=== PATIENT | male | born 1985 | race Caucasian/White ===

== ENCOUNTER 2023-10-09 01:42 | Emergency (ER) | payer SELFPAY ==
[~2023-10-09] VITALS: Ht 167.6 cm; Wt 95.3 kg
[2023-10-09 02:18] LABS: STREPTOCOCCUS GRP A ANTIGEN POSITIVE (NEGATIVE)
[2023-10-09] MEDS ORDERED: AMOX TR-K CLV1 EAC2 PO (02:21)
[2023-10-09 02:32] LABS: INFLUENZAE A&B ANTIGEN (RAPID) NEGATIVE (NEGATIVE); RESPIRATORY SYNC. VIRUS NEGATIVE (NEGATIVE)
[2023-10-09 02:40] VITALS: PULSE 78; RESP 19; TEMP 98.8; O2SAT 100
== END 2023-10-09 02:42 | disposition home or self-care (01) ==
LOC: ER 01:48
DX: R50.9 Fever, unspecified (principal); J02.0 Streptococcal pharyngitis; R05.9 Cough, unspecified; Z11.52 Encounter for screening for COVID-19
CPT/HCPCS: 83518; 87400; 87420; 99283; U0002

== ENCOUNTER 2024-06-11 12:53 | Emergency (ER) | payer BC ==
[~2024-06-11] VITALS: Ht 167.6 cm; Wt 74.8 kg
[~2024-06-11 12:53] MED LIST: AMOX TR-K CLV1 EAC2 PO
[2024-06-11 13:07] VITALS: PULSE 83; RESP 16; TEMP 98.1
[2024-06-11] MEDS ORDERED: EPIFOAM FOAM10 GM RC (13:40)
[2024-06-11 13:55] VITALS: BP 115/77; PULSE 83; RESP 16; TEMP 98.1; O2SAT 100
== END 2024-06-11 14:14 | disposition home or self-care (01) ==
LOC: ER 13:10
DX: K62.89 Other specified diseases of anus and rectum (principal); K64.5 Perianal venous thrombosis
CPT/HCPCS: 99283

== ENCOUNTER 2024-07-23 23:09 | Emergency (ER) | payer BC ==
[~2024-07-23] VITALS: Ht 165.1 cm; Wt 74.8 kg
[~2024-07-23 23:09] MED LIST changes: +EPIFOAM FOAM10 GM RC
[2024-07-23 23:14] VITALS: PULSE 78; RESP 16; TEMP 97.3; O2SAT 99
[2024-07-24 00:33] LABS: AMPHETAMINES SCREEN,URINE NEGATIVE (NEGATIVE); BENZODIAZEPINES SCREEN,URINE NEGATIVE (NEGATIVE); CANNABINOIDS SCREEN,URINE NEGATIVE (NEGATIVE); COCAINE SCREEN,URINE NEGATIVE (NEGATIVE); METHADONE SCREEN, URINE NEGATIVE (NEGATIVE); OPIATES SCREEN,URINE NEGATIVE (NEGATIVE); PHENCYCLIDINE SCREEN,URINE NEGATIVE (NEGATIVE)
== END 2024-07-23 23:28 | disposition left against medical advice (07) ==
LOC: ER 23:28
DX: S39.94XA Unspecified injury of external genitals, initial encounter (principal); F10.129 Alcohol abuse with intoxication, unspecified
CPT/HCPCS: 80307